=== PATIENT | female | born 1940 ===

== ENCOUNTER 2017-10-08 12:35 | Inpatient (IN) | payer MEDICARE ==
[2017-10-08 12:49] VITALS: BMI 32.1
--- NOTE | 2017-10-08 13:59 | ED PDOC ---
Arrival/HPI - General Chief Complaint: GI Problem Time Seen by Provider: 10/08/17 13:14 Historian: Patient, Family - History of Present Illness Narrative History of Present Illness (Text): you have baseline dementia and at your baseline level today, were treated in the ED today for recently completing levaquin for respiratory illness with today being last dose and having diarrhea yesterday but none today without bile/ blood and otherwise without any new foods/travel/sick contacts/nausea/vomiting/ headache/dizziness/difficulty breathing/chest pain/abdomen pain/numbness/ tingling/loss of limb function/pain with urination. 10/08/17 13:56 10/08/17 14:01 Past Medical History - Provider Review Nursing Documentation Reviewed: Yes - Travel History Have you recently traveled outside [place] w/in the past 3 mons?: No - Infectious Disease Hx of Infectious Diseases: None - Tetanus Immunization Tetanus Immunization: Unknown - Cardiac Hx Congestive Heart Failure: Yes Hx Hypertension: Yes - Pulmonary Hx Pneumonia: Yes - Neurological Hx Dementia: Yes - Endocrine/Metabolic Hx Diabetes Mellitus Type 2: Yes - Musculoskeletal/Rheumatological Hx Arthritis: Yes - Genitourinary/Gynecological Hx Urinary Tract Infection: Yes - Psychiatric Hx Depression: No Hx Emotional Abuse: No Hx Physical Abuse: No Hx Substance Use: No - Past Surgical History Past Surgical History: No Previous - Anesthesia Hx Anesthesia: No - Suicidal Assessment Feels Threatened In Home Enviroment: No Family/Social History - Physician Review Nursing Documentation Reviewed: Yes Smoking Status: Never Smoked Hx Alcohol Use: No Hx Substance Use: No Hx Substance Use Treatment: No Allergies/Home Meds Allergies/Adverse Reactions: Allergies tomato Allergy (Verified 10/08/17 12:49) ITCHING Home Medications: Home Meds Medication Instructions Recorded Confirmed Alprazolam [Xanax Xr] 1 tab PO DAILY 10/08/17 10/08/17 Alprazolam [Xanax] 1 tab PO BID 10/08/17 10/08/17 Atorvastatin [Lipitor] 1 tab PO HS 10/08/17 10/08/17 Cetirizine HCl [Zyrtec] 1 cap PO PRN PRN 10/08/17 10/08/17 Diphenhydramine HCl [Sleep Aid] 1 cap PO HS PRN 10/08/17 10/08/17 Donepezil [Aricept] 1 tab PO DAILY 10/08/17 10/08/17 GlipiZIDE [Glucotrol] 1 tab PO BID 10/08/17 10/08/17 Metoprolol Tartrate [Lopressor] 1 tab PO DAILY 10/08/17 10/08/17 NIFEdipine ER [Procardia XL] 1 tab PO DAILY 10/08/17 10/08/17 Sertraline HCl [Zoloft] 200 mg PO DAILY 10/08/17 10/08/17 Sitagliptin Phos/Metformin HCl 1 tab PO BID 10/08/17 10/08/17 [Janumet 50-500 mg Tablet] Valsartan/Hydrochlorothiazide 1 tab PO DAILY 10/08/17 10/08/17 [Diovan Hct 320-12.5 mg Tab] Review of Systems - Review of Systems Constitutional: Normal Eyes: Normal ENT: Normal Respiratory: Normal Cardiovascular: Normal Gastrointestinal: Diarrhea Genitourinary Female: Normal Musculoskeletal: Normal Skin: Normal Neurological: Normal Endocrine: Normal Hemo/Lymphatic: Normal Psychiatric: Normal Physical Exam Vital Signs Reviewed: Yes Vital Signs Temp Pulse Resp BP Pulse Ox 10/08/17 14:21 79 18 106/69 97 10/08/17 12:54 97.6 F 83 18 104/61 97 Temperature: Afebrile Blood Pressure: Normal Pulse: Regular Respiratory Rate: Normal Appearance: Positive for: Well-Appearing, Non-Toxic, Comfortable Pain Distress: None Mental Status: Positive for: Alert and Oriented X 3 - Systems Exam Head: Present: Atraumatic, Normocephalic Pupils: Present: PERRL Extroacular Muscles: Present: EOMI Conjunctiva: Present: Normal Ears: Present: Normal Mouth: Present: Moist Mucous Membranes Pharnyx: Present: Normal Nose (External): Present: Atraumatic Nose (Internal): Present: Normal Inspection Neck: Present: Normal Range of Motion Respiratory/Chest: Present: Clear to Auscultation, Good Air Exchange Cardiovascular: Present: Regular Rate and Rhythm Abdomen: No: Tenderness, Distention, Normal Bowel Sounds, Peritoneal Signs, Rebound, Guarding, McBurney's Point Tender, Rovsing's Sign Present, Hernias, Feeding Tubes, Ostomy Tubes, Mass/Organomegaly, Scars, Other Back: Present: Normal Inspection Upper Extremity: Present: Normal Inspection Lower Extremity: Present: Normal Inspection Neurological: Present: GCS=15, CN II-XII Intact, Speech Normal, Motor Func Grossly Intact Skin: Present: Warm, Normal Color Psychiatric: Present: Alert, Oriented x 3, Normal Insight, Normal Concentration Medical Decision Making ED Course and Treatment: you have baseline dementia and at your baseline level today, were treated in the ED today for recently completing levaquin for respiratory illness with today being last dose and having diarrhea yesterday but none today without bile/ blood and otherwise without any new foods/travel/sick contacts/nausea/vomiting/ headache/dizziness/difficulty breathing/chest pain/abdomen pain/numbness/ tingling/loss of limb function/pain with urination. You were otherwise breathing easily, smiling and laughing with your daughter, good strength/ sensation, answering questions easily and at baseline mental status, walking, clear lungs, no abdomen tenderness, no fever temp 97.6, stable heart rate 83, stable breathing rate 18, excellent oxygen level 97% room air, stable blood pressure 104/61, you have blood tests infection count 22, troponin negative, creatinine 4.2 which is increased 1.4 (03/2017), lactic acid 0.9, urine test pending, radiology chest xray no active disease, lumbar ct chronic compression fracture 1-3 with spinal stensosis, ECG normal sinus rhythm, observation and intravenous fluids done in the ED with improvement, discussed with Dr. Perales who stated admit with abx, no ct a/p and Dr. Grimaldo consultation. 10/08/17 14:00 10/08/2017 15:[address] FINDINGS: VERTEBRAE: There is a severe compression fracture of L1. This appears to be chronic. There is also a partial compression fracture of the left side of L2. There is a minimal compression deformity of the superior endplate of L3. DISCS/SPINAL CANAL/NEURAL FORAMINA: L1-2: Unremarkable. L2-3: Unremarkable. L3-4: Mild disc bulge. L4-5: There is severe stenosis at this level secondary disc bulging and facet degeneration. There is obliteration of the thecal sac. L5-S1: Severe facet arthropathy. PARASPINAL SOFT TISSUES: unremarkable. OTHER FINDINGS: None. IMPRESSION: Chronic appearing compression fractures at L1-2 and 3. Most severe at L1. Severe spinal stenosis at L4-5. Dictator: Jean Greene MD 10/08/2017 15:25 Chest X-ray IMPRESSION: No active pulmonary disease. Dictator: Talita Matthews MD 10/08/17 16:10 10/08/17 16:15 10/08/17 16:33 d 10/08/17 17:39 d/w Dr. Michel who stated yes no further diarrhea at this time but due to recent abx use, having wbc 22, rec vancomycin oral, flagyl iv and c-diff studies to be sent. pt wo diarrhea in the ED/today. - Lab Interpretations Lab Results: 10/08/17 14:30 10/08/17 14:30 Lab Results 10/08/17 15:31: pO2 175 H, VBG pH 7.22 L, VBG pCO2 43.0, VBG HCO3 17.6 L, VBG Total CO2 18.9 L, VBG O2 Sat (Calc) 100.3 H, VBG Base Excess -9.8 L, VBG Potassium 4.3, Glucose 58 L, Lactate 0.9, FiO2 21.0, Sodium 138.0, Chloride 111.0 H, Venous Blood Potassium 4.3 10/08/17 14:30: Sodium 139, Potassium 4.5, Chloride 108 H, Carbon Dioxide 18 L, Anion Gap 17, BUN 60 H, Creatinine 4.2 H, Est GFR ( Amer) 12, Est GFR ( Non-Af Amer) 10, Random Glucose 72, Calcium 9.4, Total Bilirubin 0.2, AST 58 H, ALT 38, Alkaline Phosphatase 65, Lactate Dehydrogenase 323 L, Total Creatine Kinase 352 H, CK-MB (CK-2) 6.9 H, CK-MB (CK-2) % 2.0 L, Troponin I < 0.01, Total Protein 7.4, Albumin 3.8, Globulin 3.6, Albumin/Globulin Ratio 1.0 L 10/08/17 14:30: PT 14.4 H, INR 1.26 H, APTT 28.8 10/08/17 14:30: WBC 22.8 H D, RBC 4.05, Hgb 11.1 L, Hct 36.2, MCV 89.4, MCH 27.4 , MCHC 30.7 L, RDW 14.5, Plt Count 270, MPV 10.2, Gran % 84.6 H, Lymph % (Auto) 9.0 L, [place] % (Auto) 5.4, Eos % (Auto) 1.0 L, Baso % (Auto) 0.0, Gran # 19.30 H , Lymph # 2.1, [place] # 1.2 H, Eos # 0.2, Baso # 0.01 I have reviewed the lab results: Yes (wbc 22, cr 4.2) - RAD Interpretation Radiology Orders: 10/08/17 14:20 CHEST TWO VIEWS (PA/LAT) [RAD] Stat 10/08/17 14:21 LUMBAR SPINE W/O CONTRAST [CT] Stat Hand Washer: Radiologist - EKG Interpretation Interpreted by ED Physician: Yes (NSR, flattened avr, v1, ii, flipped iii) - Medication Orders Current Medication Orders: Lactated Ringer's (Lactated Ringer's) 1,000 mls @ 100 mls/hr IV .Q10H OBEY Metronidazole (Flagyl) 500 mg in 100 mls @ 100 mls/hr IVPB STAT STA PRN Reason: Protocol Stop: 10/08/17 18:34 Vancomycin HCl (Vancocin 25 Mg/Ml (Oral Use)) 500 mg PO STAT STA PRN Reason: Protocol Stop: 10/08/17 17:37 Discontinued Medications Piperacillin Sod/Tazobactam Sod (Zosyn 4.5 Gm In Ns 100ml) 4.5 gm in 100 mls @ 200 mls/hr IVPB STAT STA PRN Reason: Protocol Stop: 10/08/17 17:01 Last Admin: 10/08/17 17:21 Dose: 200 mls/hr eMAR Start Stop Document 10/08/17 17:21 EQ (Rec: 10/08/17 17:21 EQ [id number]) Intravenous Solution Start Date 10/08/17 Start Time 17:21 Disposition/Present on Arrival - Present on Arrival History of DVT/PE: No History of Uncontrolled Diabetes: No Urinary Catheter: No History of Decub. Ulcer: No History Surgical Site Infection Following: None - Disposition Referrals: Douglas Perales DO [Primary Care Provider] - Follow up with primary Forms: [employer] ([place]occan)
[2017-10-08 14:57] LABS: BASO # 0.01 K/mm3 (0.0-2.0); EOS # 0.2 (0.0-0.7); GRAN # 19.3 (1.4-6.5); GRAN % 84.6 % (50.0-68.0); HEMOGLOBIN 11.1 g/dL (12.0-16.0); LYMPH # 2.1 (1.2-3.4); MEAN CELL VOLUME 89.4 fl (80.0-105.0); MEAN CORPUSCULAR HEMOGLOBIN 27.4 pg (25.0-35.0); MEAN CORPUSCULAR HGB CONC 30.7 g/dl (31.0-37.0); MEAN PLATELET VOLUME 10.2 fl (7.0-11.0); MONO # 1.2 (0.1-0.6); MONO % 5.4 % (1.0-6.0); RBC 4.05 10^6/uL (3.5-6.1); RED CELL DISTRIBUTION WIDTH 14.5 % (11.5-14.5); WHITE BLOOD COUNT 22.8 10^3/ul (4.5-11.0)
[2017-10-08 15:10] LABS: INR 1.26 (0.93-1.08); PARTIAL THROMBOPLASTIN TIME 28.8 Seconds (25.1-36.5); PROTHROMBIN TIME 14.4 SECONDS (9.4-12.5)
[2017-10-08 15:19] LABS: TROPONIN I < 0.01 ng/mL
--- NOTE | 2017-10-08 15:19 | CT ---
PROCEDURE: CT Lumbar Spine without contrast HISTORY: 77yoF, had fall with concern for back injury COMPARISON: None. TECHNIQUE: Axial computed tomography images were obtained of the lumbar spine without the use of intravenous contrast. Coronal and sagittal reformatted images were created and reviewed. Radiation dose: Total exam DLP = 814 mGy-cm. This CT exam was performed using one or more of the following dose reduction techniques: Automated exposure control, adjustment of the mA and/or kV according to patient size, and/or use of iterative reconstruction technique. FINDINGS: VERTEBRAE: There is a severe compression fracture of L1. This appears to be chronic. There is also a partial compression fracture of the left side of L2. There is a minimal compression deformity of the superior endplate of L3. DISCS/SPINAL CANAL/NEURAL FORAMINA: L1-2: Unremarkable. L2-3: Unremarkable. L3-4: Mild disc bulge L4-5: There is severe stenosis at this level secondary disc bulging and facet degeneration. There is obliteration of the thecal sac. L5-S1: Severe facet arthropathy PARASPINAL SOFT TISSUES: Unremarkable. OTHER FINDINGS: None. IMPRESSION: Chronic appearing compression fractures at L1-2 and 3. Most severe at L1. Severe spinal stenosis at L4-5. See comment
--- NOTE | 2017-10-08 15:27 | RAD ---
HISTORY: COMPARISON: 12/22/2016. TECHNIQUE: Chest PA and lateral FINDINGS: LINES AND TUBES: None. LUNG AND PLEURA: The lungs are well inflated and clear. HEART AND MEDIASTINUM: The heart is not enlarged. The hilar and mediastinal contours are within normal limits. SKELETAL STRUCTURES: The bony structures are within normal limits for the patient's age. VISUALIZED UPPER ABDOMEN: Normal. OTHER FINDINGS: None. IMPRESSION: No active pulmonary disease.
[2017-10-08 15:39] LABS: VENOUS BLOOD GAS BASE EXCESS -9.8 mmol/L (0.0-2.0); VENOUS BLOOD GAS PO2 175 mm/Hg (30-55); VENOUS BLOOD PH 7.22 (7.32-7.43)
[2017-10-08 15:44] LABS: ALBUMIN 3.8 g/dL (3.0-4.8); ALT/SGPT 38 U/L (7-56); AST/SGOT 58 U/L (14-36); BLOOD UREA NITROGEN 60 mg/dL (7-21); CALCIUM 9.4 mg/dL (8.4-10.5); GFR AFRICAN-AMERICAN 12; GFR NON-AFRICAN AMERICAN 10
[2017-10-08] MEDS ORDERED: Lactated Ringer's 1,000 ML IV SCH (16:15)
[2017-10-08] MEDS ORDERED: Piperacill/Tazo 4.5gm in NS 4.5 GM/100 ML BAG IVPB STA (16:32)
[2017-10-08 17:17] LABS: CK-MB 6.9 ng/mL (0.0-3.6)
[2017-10-08] MEDS ORDERED: metroNIDAZOLE IV 500 mg/100 ml 500 MG/100 ML BAG IVPB STA (17:35)
[2017-10-08] MEDS ORDERED: Vancomycin 25 MG/ML PO STA (17:36)
[2017-10-08] MEDS: Piperacillin/Tazobact 2.25gm 2.25 GM/100 ML BAG IVPB SCH (21:03)
[2017-10-08] MEDS: Insulin Reg-MEDIUM-Coverage SC SCH (22:06)
[2017-10-08] MEDS: Vancomycin 25 MG/ML PO SCH (22:06)
[2017-10-08] MEDS: Sodium Chloride 0.45% 1,000 ML IV SCH (22:10)
[2017-10-08] MEDS ORDERED: Influenza Vaccine 60 mcg/0.5 mL SYR (4YR UP) IM ONE (22:58)
[2017-10-08] MEDS ORDERED: Pneumococcal 23-Valent Vaccine IM ONE (22:58)
--- NOTE | 2017-10-09 03:52 | HP ---
HISTORY OF PRESENT ILLNESS: I have been doing house calls on [place] for a while now. She is doing well. Finally, I was able to get a blood test on her and I found to have a 19,000 white count, so I send her to the Emergency Room. She has been on antibiotics on the outpatient and she had one bout of diarrhea. Clinically, looked at her, she did look quite well. She did have a respiratory illness a couple of weeks ago, now she looks pretty good that way, but she is having one dose of diarrhea, found to have C. Difficile. She is now in the ER. She is happy with family, laughing. PAST MEDICAL HISTORY: Hypertension is her history, dementia is her history, diabetes mellitus, arthritis, urinary tract infections. SOCIAL HISTORY: Never smoked. No alcohol. No drugs. ALLERGIES: SHE HAS ALLERGIES TO TOMATOES. MEDICATIONS: She takes Xanax for anxiety, Lipitor for high cholesterol, Zyrtec for allergies, Benadryl for sleep, Aricept for dementia, Glucotrol for diabetes, Lopressor for high blood pressure, Procardia for high blood pressure, Zoloft for depression, Janumet for diabetes and valsartan and hydrochlorothiazide for blood pressure. REVIEW OF SYSTEMS: No acute vision changes or hearing changes. No sore throat. No neck pain. No chest pain. No cough. No palpitations. Her mucus today is very good. Normally her lungs are bad, today is good. No back pain, although she does have a back history in the past. No skin issues. She had one dose of diarrhea yesterday other than that she had normal bowel movements. PHYSICAL EXAMINATION GENERAL: She is well appearing, smiling, comfortable, alert and oriented x3. VITAL SIGNS: She has a 97.6 temperature, 83 pulse, 18 respiratory rate, 104/61 blood pressure, 97% O2 sat on room air. HEENT: Head is atraumatic, normocephalic. Pupils reactive to light and accommodation. Extraocular muscles are intact. Throat is moist. NECK: Supple. HEART: Regular rate. LUNGS: Clear to auscultation bilaterally. No rales or rhonchi or wheezes. ABDOMEN: Soft, nontender. Positive bowel sounds. No guarding, no rebound or CVA tenderness. EXTREMITIES: No edema. NEUROLOGIC: GCS is 15. Cranial nerves II through XII grossly intact. Normal speech. Alert and oriented x3. This is her baseline mentally. They did do a lumbar spinal CT, which showed compression fracture of L1, its is chronic, partial compression fractures on the left side L2, that seemed to be chronic. There is severe stenosis. No acute pulmonary disease in the chest x-ray. She has a 22.8 white count, 11.1 hemoglobin, 36.2 hematocrit with 270 platelets, 139 sodium, potassium 4.5, BUN 60, creatinine 4.2 which I believe is high for her, little bit of renal failure, calcium is 9.4, AST is 58, ALT is 38, alk phos 65, lactate dehydrogenase is 323. Troponin I is less than 0.01, total protein 7.4, albumin is 3.8. INR is 1.26. Lactate is 0.9 with a 22.8 white count. PLAN: I consulted Dr. Lorenzo, Infectious Disease and Renal. I put her back on the medications. I am going to hold the metformin because of the renal issue. I just put her on the Janumet. She is here for an elevated white count of 22,000, kidney failure. She will be on IV antibiotics with an Infectious Disease and Renal consult. Douglas Perales DO
[2017-10-09] MEDS: Piperacillin/Tazobact 2.25gm 2.25 GM/100 ML BAG IVPB SCH (04:44)
[2017-10-09 08:11] LABS: ALBUMIN 3.5 g/dL (3.0-4.8); CALCIUM 8.8 mg/dL (8.4-10.5)
[2017-10-09 09:23] LABS: HEMOGLOBIN 10.9 g/dL (12.0-16.0); MEAN CELL VOLUME 89.7 fl (80.0-105.0); MEAN CORPUSCULAR HEMOGLOBIN 27.4 pg (25.0-35.0); MEAN CORPUSCULAR HGB CONC 30.5 g/dl (31.0-37.0); MEAN PLATELET VOLUME 10.6 fl (7.0-11.0); RBC 3.98 10^6/uL (3.5-6.1); RED CELL DISTRIBUTION WIDTH 14.6 % (11.5-14.5); WHITE BLOOD COUNT 16.3 10^3/ul (4.5-11.0)
[2017-10-09] MEDS ORDERED: HYDROCHLOROTHIAZIDE PO SCH (10:00)
[2017-10-09] MEDS ORDERED: VALSARTAN PO SCH (10:00)
[2017-10-09] MEDS ORDERED: Non Formulary Medication (Sitagliptin Phos/Metformin Hcl [Janumet 50-500 Mg Tablet] 1 TAB) PO SCH (10:00)
[2017-10-09] MEDS ORDERED: [UNRECOGNIZED DRUG - OTHER] PO SCH (10:00)
--- NOTE | 2017-10-09 10:43 | CARD ---
APPROVED REPORT EKG Measurement Heart [id number] <Conclusion> Normal sinus rhythm Moderate voltage criteria for LVH, may be normal variant Inferior infarct, age undetermined No change
--- NOTE | 2017-10-09 10:57 | CP.PCM.CON ---
History of Present Illness - History of Present Illness History of Present Illness: RENAL CONSULT Consult for RED HPI: 77 yo F w/ pmh of dementia, htn, nerve pain that presented w/ leukocytosis. She has been getting evaluated by her PCP over the last couple weeks. She has had a leukocytosis - she was recently treated w/ a course oABx - levaquin for her infection but w/out improvement. She also endorses some loose stools. She had dec po intake according to family as well. She was on a arb/ hctz combination at home. She denies any NSAID use. She endorses hx of microhematuria. A full detailed ROS is negative except as in my hpi pmh: as below famhx: no esrd sochx: no active smoking etoh or ivdu all: tomato meds: as below PE: vs as below Gen: nad sclera anicteric op sclera neck supple +s1+s2 cta abd soft ext no edema neuro: a+ox2 follows commands psych: flat skin no rash labs reviewed CXR reviewed imp: ARF / Diarrhea/ Anemia / Leukocytosis / Acidosis plan: RED - Etiology not clear - mildly improved today. ? Prerenal. Improved w/ slight fluids. Family endorses dec intake. F/u CT abdomen to r/o obstructive etiology for renal failure. Will check UA and urine lytes, urine na urine cr and urine protein. Will hold hctz and diovan in the setting of RED. Acidosis stable - will monitor likely due to RED no lactic acid. F/u ID consult. monitor H & H Past Patient History - Infectious Disease Hx of Infectious Diseases: None - Tetanus Immunizations Tetanus Immunization: Unknown - Past Social History Smoking Status: Never Smoked - CARDIAC Hx Cardiac Disorders: Yes Hx Congestive Heart Failure: Yes Hx Hypercholesterolemia: Yes Hx Hypertension: Yes - PULMONARY Hx Respiratory Disorders: Yes Hx Pneumonia: Yes - NEUROLOGICAL Hx Neurological Disorder: Yes Hx Dementia: Yes - HEENT Hx HEENT Problems: No - RENAL Hx Chronic Kidney Disease: No - ENDOCRINE/METABOLIC Hx Endocrine Disorders: Yes Hx Diabetes Mellitus Type 2: Yes - HEMATOLOGICAL/ONCOLOGICAL Hx Blood Disorders: No - INTEGUMENTARY Hx Dermatological Problems: No - MUSCULOSKELETAL/RHEUMATOLOGICAL Hx Musculoskeletal Disorders: Yes Hx Arthritis: Yes Hx Back Pain: Yes Hx Falls: Yes (multiple falls) Hx Unsteady Gait: Yes - GASTROINTESTINAL Hx Gastrointestinal Disorders: No - GENITOURINARY/GYNECOLOGICAL Hx Genitourinary Disorders: Yes Hx Urinary Tract Infection: Yes - PSYCHIATRIC Hx Psychophysiologic Disorder: Yes (insomnia) Hx Anxiety: Yes Hx Depression: No Hx Emotional Abuse: No Hx Physical Abuse: No Hx Substance Use: No - SURGICAL HISTORY Hx Surgeries: No - ANESTHESIA Hx Anesthesia: No Meds Allergies/Adverse Reactions: Allergies Allergy/AdvReac Type Severity Reaction Status Date / Time tomato Allergy ITCHING Verified 10/08/17 20:59 - Medications Medications: Current Medications Alprazolam (Xanax) 1 mg PO BID OBEY PRN Reason: Protocol Atorvastatin Calcium (Lipitor) 10 mg PO HS OBEY Last Admin: 10/08/17 22:07 Dose: 10 mg Glipizide (Glucotrol) 2.5 mg PO BID OBEY Hydrochlorothiazide (Microzide) 12.5 mg PO DAILY [facility] Sodium Chloride (Sodium Chloride 0.45%) 1,000 mls @ 80 mls/hr IV .[id number] [facility] Last Admin: 10/08/17 22:10 Dose: 80 mls/hr Metronidazole (Flagyl) 500 mg in 100 mls @ 100 mls/hr IVPB Q8 OBEY PRN Reason: Protocol Stop: 10/18/17 14:01 Insulin Human Regular (Humulin R Med) 0 units SC ACHS OBEY PRN Reason: Protocol Last Admin: 10/08/17 22:06 Dose: Not Given Metoprolol Succinate (Toprol Xl) 100 mg PO BRK OBEY Nifedipine (Procardia Xl) 60 mg PO DAILY [facility] Sertraline HCl (Zoloft) 200 mg PO DAILY OBEY Sitagliptin Phosphate (Januvia) 100 mg PO DAILY OBEY Valsartan (Diovan) 320 mg PO DAILY OBEY Vancomycin HCl (Vancocin 25 Mg/Ml (Oral Use)) 125 mg PO QID OBEY PRN Reason: Protocol Last Admin: 10/08/17 22:06 Dose: 125 mg Results - Vital Signs Recent Vital Signs: Last Vital Signs Temp 97.6 F 10/09/17 08:00 Pulse 88 10/09/17 08:00 Resp 20 10/09/17 08:00 BP 124/55 L 10/09/17 08:00 Pulse Ox 94 L 10/09/17 08:00 - Labs Result Diagrams: 10/09/17 07:00 10/09/17 07:00 Labs: Laboratory Results - last 24 hr 10/08/17 10/09/17 10/09/17 21:00 07:00 07:00 WBC 16.3 H D RBC 3.98 Hgb 10.9 L Hct 35.7 L MCV 89.7 MCH 27.4 MCHC 30.5 L RDW 14.6 H Plt Count 234 MPV 10.6 Sodium 142 Potassium 3.8 Chloride 111 H Carbon Dioxide 18 L Anion Gap 18 BUN 58 H Creatinine 4.0 H Est GFR ( Amer) 13 Est GFR (Non-Af Amer) 11 POC Glucose (mg/dL) 72 Random Glucose 37 L* D Calcium 8.8 Total Bilirubin 0.2 AST 58 H ALT 49 Alkaline Phosphatase 56 Total Protein 6.9 Albumin 3.5 Globulin 3.4 Albumin/Globulin Ratio 1.0 L 10/09/17 10/09/17 07:32 08:11 WBC RBC Hgb Hct MCV MCH MCHC RDW Plt Count MPV Sodium Potassium Chloride Carbon Dioxide Anion Gap BUN Creatinine Est GFR ( Amer) Est GFR (Non-Af Amer) POC Glucose (mg/dL) 51 L 91 Random Glucose Calcium Total Bilirubin AST ALT Alkaline Phosphatase Total Protein Albumin Globulin Albumin/Globulin Ratio
[2017-10-09] MEDS: Vancomycin 25 MG/ML PO SCH ×4 (11:00→22:34)
[2017-10-09] MEDS: Metoprolol Succinate 100 mg XL Tab PO SCH (11:10)
[2017-10-09] MEDS: NIFEdipine 60 mg ER Tab PO SCH (11:10)
[2017-10-09] MEDS: Insulin Reg-MEDIUM-Coverage SC SCH ×4 (11:10→22:26)
[2017-10-09 12:53] LABS: PH,URINE 5.5 (4.7-8.0); URINE BILIRUBIN NEGATIVE (NEGATIVE); URINE BLOOD SMALL (NEGATIVE); URINE GLUCOSE (UA) NEGATIVE (NEGATIVE); URINE LEUKOCYTE ESTERASE MODERATE Leu/uL (NEGATIVE); URINE NITRATE NEGATIVE (NEGATIVE); URINE PROTEIN 30 mg/dL (<30 mg/dL); URINE UROBILINOGEN 0.2 E.U./dL (<1 E.U./dL)
[2017-10-09 12:59] LABS: CREATININE,RANDOM URINE 124 mg/dL; TOTAL PROTEIN,RANDOM URINE 41 mg/L
--- NOTE | 2017-10-09 12:59 | PN ---
DATE: SUBJECTIVE: She is resting comfortably in bed with family present. Long discussion with everybody. She is being seen by Infectious Disease and Renal. She is here for acute kidney injury, acute kidney failure and sepsis leukocytosis thinking that it might be C. diff, but she only had one bout of diarrhea. PHYSICAL EXAMINATION: VITAL SIGNS: She has a 97.6 temperature, 88 pulse, 124/55 blood pressure, 20 respiratory rate, 94% O2 sat on room air. HEENT: Head is atraumatic, normocephalic. HEART: Regular rate. LUNGS: Clear to auscultation. ABDOMEN: Soft, obese, nontender. EXTREMITIES: No edema. MEDICATIONS: She is currently on Diovan, Flagyl IV, Glucotrol, insulin, Januvia, Lipitor, Microzide, Procardia, IV fluids, Toprol, vancomycin p.o., Xanax and Zoloft. LABORATORY DATA: She has a 142 sodium, potassium 3.8, BUN is 58, creatinine 4, still high. GFR is 11. Last blood sugar was 313, was low as 51. AST is 58, ALT is 49, alk phos 56, total protein 6.9. White count is down to 16.3 from 22.8, hemoglobin 10.9, hematocrit 35.7, and platelets are 234. We will check her labs tomorrow. ASSESSMENT AND PLAN: We will get her out of bed to chair, physical therapy. She had a leukocytosis, acute renal failure, kidney injury, possible clostridium difficile, and now she is little bit weaker. We will watch her very closely, get her out of bed to chair, physical therapy, IV antibiotics, IV fluids. Check her labs tomorrow. Douglas Perales DO MTDSandy
[2017-10-09 13:37] LABS: URINE APPEARANCE SL CLOUDY (CLEAR); URINE COLOR YELLOW (YELLOW)
[2017-10-09 13:44] LABS: URINE BACTERIA FEW (NEG)
[2017-10-09] MEDS: metroNIDAZOLE IV 500 mg/100 ml 500 MG/100 ML BAG IVPB SCH ×2 (15:23→22:34)
--- NOTE | 2017-10-09 22:15 | CON ---
DATE: 10/09/2017 LOCATION: The patient is in room 574, bed 1. The patient was seen early this morning on 10/09/2017. CHIEF COMPLAINT: Abdominal pain and diarrhea times several days. HISTORY OF PRESENT ILLNESS: This is a 77-year-old female with past medical history of dementia. The patient has a history of high cholesterol, diabetes, hypertension, dementia, and depression. The patient admitted with abdomina pain and diarrhea. No fevers. No chills this morning. She states her diarrhea has resolved. No abdominal pain now. No chest pain. No cough. No dysuria. No bright red blood per rectum. PAST MEDICAL HISTORY: Significant for high cholesterol, diabetes, hypertension, dementia, and depression. PAST SURGICAL HISTORY: Noncontributory. ALLERGIES: THE PATIENT HAS ALLERGY TO TOMATO. MEDICATIONS AT HOME: Reveals the patient to be on Xanax, Lipitor, Aricept, Glucotrol, Lopressor, and Procardia. PHYSICAL EXAMINATION: GENERAL: The patient is in bed, no acute distress, answering questions, and she appears to be comfortable. VITAL SIGNS: Temperature of 98, blood pressure is 120/50, respiratory rate of 20, and heart rate of 74. HEENT: Unremarkable. NECK: Supple. LUNGS: Decreased breath sounds. HEART: Normal S1 and S2. ABDOMEN: Soft and nontender. No rebound. No guarding. No masses. LABORATORY DATA: Reveals a white count of 22,800, hemoglobin of 11, and platelets of 270. Coagulation is noted. Blood gases are reviewed. Chemistries reveals the creatinine is 4.2 prior to this admission and in 03/2017, the patient's creatinine was 1.4. LFTs are noted. AST is 58. LDH is elevated. CPK is elevated. No urinalysis is available. The patient had a negative chest x-ray and CAT scan of the lumbar spine shows compression fracture of L2 and L3. ASSESSMENT AND PLAN: This is a 77-year-old female with dementia, high cholesterol, diabetes, hypertension, depression, status post treatment for upper respiratory tract infection, but now presenting with diarrhea, leukocytosis, white count of 22,000, and creatinine of 4.2. 1. Leukocytosis, must rule out Clostridium difficile. 2. Acute kidney injury. Creatinine is changed from 1.4 to 4.2 and keep in mind that the patient is on Lopressor, beta-debbi, which may be the reason why she is not tachycardic, must rule out pseudomembranous colitis. We will order a CAT scan of the abdomen and pelvis, sent the blood cultures, urine cultures, urinalysis, and stool cultures. We will start the patient on IV Flagyl and p.o. vancomycin since her exam is completely benign and she was doing well. We will make further decision based on urinalysis, CAT scan of the abdomen and pelvis, and we will follow closely with you. Elliott Lorenzo MD
[2017-10-10] MEDS: metroNIDAZOLE IV 500 mg/100 ml 500 MG/100 ML BAG IVPB SCH ×3 (06:08→23:20)
[2017-10-10 07:25] LABS: HEMOGLOBIN 10.6 g/dL (12.0-16.0); MEAN CELL VOLUME 88.2 fl (80.0-105.0); MEAN CORPUSCULAR HEMOGLOBIN 27.2 pg (25.0-35.0); MEAN CORPUSCULAR HGB CONC 30.9 g/dl (31.0-37.0); MEAN PLATELET VOLUME 10.3 fl (7.0-11.0); RBC 3.89 10^6/uL (3.5-6.1); RED CELL DISTRIBUTION WIDTH 14.7 % (11.5-14.5); WHITE BLOOD COUNT 13.5 10^3/ul (4.5-11.0)
[2017-10-10 08:00] LABS: ALBUMIN 3.4 g/dL (3.0-4.8); CALCIUM 8.9 mg/dL (8.4-10.5)
[2017-10-10] MEDS: Insulin Reg-MEDIUM-Coverage SC SCH ×3 (09:33→23:08)
[2017-10-10] MEDS: NIFEdipine 60 mg ER Tab PO SCH (09:34)
[2017-10-10] MEDS: Metoprolol Succinate 100 mg XL Tab PO SCH (09:35)
[2017-10-10] MEDS: Sodium Chloride 0.45% 1,000 ML IV SCH ×2 (09:38→23:21)
[2017-10-10] MEDS: Vancomycin 25 MG/ML PO SCH ×4 (11:20→23:21)
[2017-10-10] MEDS ORDERED: Iohexol 240 (50 ml) ONE (11:41)
--- NOTE | 2017-10-10 15:02 | CT ---
PROCEDURE: CT Abdomen and Pelvis without IV contrast. HISTORY: wbc 22k COMPARISON: Abdominal ultrasound performed 03/28/13 TECHNIQUE: Contiguous axial images of the abdomen and pelvis. Oral contrast was administered. No IV contrast given. Coronal and Sagittal reformats generated and reviewed. Radiation dose: Total exam DLP = 950.39 mGy-cm. This CT exam was performed using one or more of the following dose reduction techniques: Automated exposure control, adjustment of the mA and/or kV according to patient size, and/or use of iterative reconstruction technique. FINDINGS: There is limited evaluation of the solid organs without the administration of IV contrast. LOWER THORAX: No visible consolidation, pleural effusion, or pneumothorax. LIVER: Unremarkable unenhanced appearance. GALLBLADDER AND BILE DUCTS: Unremarkable unenhanced appearance. PANCREAS: Unremarkable unenhanced appearance. SPLEEN: Unremarkable unenhanced appearance. ADRENALS: Unremarkable unenhanced appearance. KIDNEYS AND URETERS: No hydronephrosis or obstructing renal calculus. 3.5 cm low-density left renal lesion measures approximate 14 HU and contains punctate probable peripheral calcifications, possibly complex cyst. Indeterminate 1.9 cm right lower pole renal lesion measures approximately 41HU. BLADDER: The urinary bladder appears unremarkable. REPRODUCTIVE: Uterus is present. APPENDIX: The appendix appears within normal limits of caliber. No secondary signs of acute appendicitis. BOWEL: The stomach is nondistended. The bowel loops appear within normal limits of caliber without evidence of intestinal obstruction. Diverticulosis without CT evidence of acute diverticulitis. PERITONEUM: No significant free fluid. No definite free air. LYMPH NODES: No bulky lymphadenopathy identified. VASCULATURE: No aortic aneurysm. BONES: L1 compression fracture deformity, age indeterminate. Multilevel degenerative changes. OTHER FINDINGS: None. IMPRESSION: Probable 3.5 cm left renal complex cyst and indeterminate 1.9 cm right lower pole renal hyperdense lesion. Additional too small to characterize right upper pole renal hypodensity. Recommend renal ultrasound and or dedicated cross-sectional imaging for further evaluation. Diverticulosis without CT evidence of acute diverticulitis. L1 compression fracture deformity, age indeterminate. Additional findings as above.
--- NOTE | 2017-10-10 15:07 | CP.PCM.PN ---
Subjective - Date & Time of Evaluation Date of Evaluation: 10/10/17 Time of Evaluation: 15:05 - Subjective Subjective: RENAL FOLLOW UP S: seen and examined pt feels improved PE: vs as below gen: nad sclera anicteric op sclera neck supple +s1+s2 cta abd soft ext no edema neuro: a+ox3 psych: flat skin no rash labs reviewed CXR reviewed imp: ARF / Diarrhea/ Anemia / Leukocytosis / Acidosis plan: RED - resolving w/ fluids and w/ hctz and diovan on hold. going for CT today. Acidosis stable - will monitor likely due to RED no lactic acid. F/u ID consult. monitor H & H Objective - Vital Signs/Intake and Output Vital Signs (last 24 hours): Temp Pulse Resp BP Pulse Ox 98.4 F 90 22 112/48 L 95 10/10/17 07:30 10/10/17 07:30 10/10/17 07:30 10/10/17 07:30 10/10/17 07:30 Intake and Output: 10/10/17 10/10/17 06:59 18:59 Intake Total 360 600 Balance 360 600 - Medications Medications: Current Medications Alprazolam (Xanax) 1 mg PO BID [facility] PRN Reason: Protocol Last Admin: 10/10/17 09:33 Dose: 1 mg Atorvastatin Calcium (Lipitor) 10 mg PO HS [facility] Last Admin: 10/09/17 22:34 Dose: 10 mg Glipizide (Glucotrol) 2.5 mg PO BID [facility] Last Admin: 10/10/17 09:34 Dose: 2.5 mg Hydrochlorothiazide (Microzide) 12.5 mg PO DAILY [facility] Last Admin: 10/09/17 14:49 Dose: Not Given Sodium Chloride (Sodium Chloride 0.45%) 1,000 mls @ 80 mls/hr IV .[id number] [facility] Last Admin: 10/10/17 09:38 Dose: 80 mls/hr Metronidazole (Flagyl) 500 mg in 100 mls @ 100 mls/hr IVPB Q8 [facility] PRN Reason: Protocol Stop: 10/18/17 14:01 Last Admin: 10/10/17 06:08 Dose: 100 mls/hr Insulin Human Regular (Humulin R Med) 0 units SC ACHS [facility] PRN Reason: Protocol Last Admin: 10/10/17 09:33 Dose: 3 units Metoprolol Succinate (Toprol Xl) 100 mg PO BRK [facility] Last Admin: 10/10/17 09:35 Dose: 100 mg Nifedipine (Procardia Xl) 60 mg PO DAILY [facility] Last Admin: 10/10/17 09:34 Dose: 60 mg Sertraline HCl (Zoloft) 200 mg PO DAILY [facility] Last Admin: 10/10/17 09:34 Dose: 200 mg Sitagliptin Phosphate (Januvia) 100 mg PO DAILY [facility] Last Admin: 10/10/17 09:34 Dose: 100 mg Valsartan (Diovan) 320 mg PO DAILY [facility] Last Admin: 10/09/17 10:00 Dose: Not Given Vancomycin HCl (Vancocin 25 Mg/Ml (Oral Use)) 125 mg PO QID [facility] PRN Reason: Protocol Last Admin: 10/10/17 11:20 Dose: 125 mg - Labs Labs: 10/10/17 06:15 10/10/17 06:15 PT 14.4 SECONDS (9.4-12.5) H 10/08/17 14:30 INR 1.26 (0.93-1.08) H 10/08/17 14:30 APTT 28.8 Seconds (25.1-36.5) 10/08/17 14:30
--- NOTE | 2017-10-10 17:51 | PN ---
DATE: SUBJECTIVE: She is sitting out of bed to chair. Family is present. She is doing much better. She is happy. She is eating. She is smiling. She is in good spirits. No complaints. MEDICATIONS: She is on IV fluids, Diovan, metronidazole IV, glipizide, insulin coverage, Januvia, Lipitor, Microzide, Procardia, Toprol, vancomycin p.o., Xanax and Zoloft. PHYSICAL EXAMINATION VITAL SIGNS: 98.4 temperature, 90 pulse, 112/48 blood pressure, 22 respiratory rate, 95% sat on room air. HEENT: Head is atraumatic, normocephalic. HEART: Regular rate. LUNGS: Clear to auscultation. ABDOMEN: Soft, obese, nontender. EXTREMITIES: No edema. LABORATORY DATA: She has a 140 sodium, potassium is 3.8, BUN is down to 48, creatinine is down to 2.8 which is really doing much better. Her renal failure, kidney injury is improving. Last blood sugar was 206, calcium was 8.9, total bili is 0.2, AST is 59, ALT is 42, alk phos is 54, total protein 6.6. She is being seen by Renal, Infectious Disease. I do think she is starting to improve. If the numbers are good, I will try and discharge her tomorrow. She has had leukocytosis, rule out C. difficile, acute kidney injury, acute kidney failure. Douglas Perales DO
[2017-10-11] MEDS ORDERED: guaiFENesin 100 mg/5 ml Syrup UD PO STA (01:17)
--- NOTE | 2017-10-11 05:26 | PN ---
DATE: 10/10/2017 SUBJECTIVE: No fevers. No chills. PHYSICAL EXAMINATION VITAL SIGNS: Temperature 98, blood pressure is 100/60, and respiratory rate of 20. HEENT: Unremarkable. NECK: Supple. LUNGS: Have decreased breath sounds. HEART: Normal S1 and S2. ABDOMEN: Soft, nontender. LABORATORY EXAMINATION: Reveals a white count of 13,500, hemoglobin of 10, platelets 196, BUN of 48, creatinine of 2.8, procalcitonin of 0.05. Urinalysis is noted. Microbiology revealed blood cultures have no growth, and C. diff antigen and toxin are negative. ASSESSMENT AND PLAN: This is a 77-year-old female with dementia, high cholesterol, diabetes, hypertension, depression, was treated with Levaquin for upper respiratory infection, now presenting with diarrhea and leukocytosis. 1. Leukocytosis with acute kidney injury, creatinine exchanged from 1.4 to 4.2 from last admission. The patient is on Lopressor and on IV Flagyl. Given negative C. difficile antigen and negative C. difficile toxin, with renal function improving now down to 2.8 from 4.2, more consistent with dehydration and intrinsic underlying kidney disease protein with negative blood cultures and white count has improved to 13,500, we will discontinue the p.o. vancomycin, continue the Flagyl. The patient was on outpatient Levaquin, and we will check on the urine culture. We will also send stool for norovirus. Also, at this time as of this morning when I spoke to her, she did not have any diarrhea. We will check on norovirus antigen and stool and a rotavirus antigen. The patient has not had any recent travel. Elliott Lorenzo MD
[2017-10-11] MEDS: metroNIDAZOLE IV 500 mg/100 ml 500 MG/100 ML BAG IVPB SCH ×3 (05:51→22:06)
[2017-10-11] MEDS ORDERED: Promethazine DM 6.25 mg-15 mg/5 ml Syrup PO PRN ×2 (07:54→07:55)
[2017-10-11] MEDS: Insulin Reg-MEDIUM-Coverage SC SCH ×4 (08:45→22:07)
[2017-10-11 09:10] VITALS: RESP 20
[2017-10-11] MEDS: Metoprolol Succinate 100 mg XL Tab PO SCH (10:36)
[2017-10-11] MEDS: NIFEdipine 60 mg ER Tab PO SCH (10:36)
[2017-10-11] MEDS ORDERED: Potassium Chloride 20 mEq ER Tab PO ONE (11:58)
--- NOTE | 2017-10-11 12:35 | PN ---
DATE: SUBJECTIVE: I saw her sitting out of bed to chair with family present. She is now congested and coughing. They want some cough medicine, which sounds reasonable. She has done it from time to time. She is smiling. She wants to go home, but clinically, she looks a little bit worse. [facility], we have called the [facility], got a swallow evaluation. Give her some Robitussin. PHYSICAL EXAMINATION VITAL SIGNS: She has a 98.4 temperature, 90 pulse, 112/48 blood pressure, 22 respiratory rate, 95% O2 saturation on room air. HEENT: Head is atraumatic, normocephalic. Throat is moist. NECK: Supple. HEART: Regular rate. LUNGS: Congestion bilaterally, changes with cough. ABDOMEN: Soft, obese. EXTREMITIES: No edema. MEDICATIONS: She is on Diovan, Flagyl, Glucotrol, Januvia, Lipitor, Microzide, Procardia, intravenous fluids, which I will decrease the rate, Toprol, Xanax, Zoloft. I will add Robitussin and some Xopenex. LABORATORY DATA: She has a 13.5 white count yesterday, it is still coming down, 10.6 hemoglobin, 196 platelets are still continuing to come down. Waiting for labs from this morning, 158 blood sugar. ASSESSMENT AND PLAN: She is being seen by Infectious Disease and Renal. I will call on Pulmonary. Continue with aggressive treatment and care on [facility]. She sepsis with 22,000 white count, Clostridium difficile, renal failure, acute kidney injury. The patient, however, continues to improve and now her lungs are congested. Douglas Perales DO MTDD
[2017-10-11] MEDS: Sodium Chloride 0.45% 1,000 ML IV SCH (16:40)
--- NOTE | 2017-10-11 16:41 | CP.PCM.PN ---
Subjective - Date & Time of Evaluation Date of Evaluation: 10/11/17 Time of Evaluation: 12:40 - Subjective Subjective: Comfortable in bed, no fevers overnight. Objective - Vital Signs/Intake and Output Vital Signs (last 24 hours): Temp Pulse Resp BP Pulse Ox 97.2 F L 90 20 135/65 95 10/11/17 08:00 10/11/17 10:36 10/11/17 08:00 10/11/17 10:36 10/11/17 08:00 Intake and Output: 10/11/17 10/11/17 06:59 18:59 Intake Total 60 Output Total 1200 Balance -1140 - Medications Medications: Current Medications Alprazolam (Xanax) 1 mg PO BID [facility] PRN Reason: Protocol Last Admin: 10/11/17 10:33 Dose: 1 mg Atorvastatin Calcium (Lipitor) 10 mg PO HS [facility] Last Admin: 10/10/17 23:20 Dose: 10 mg Glipizide (Glucotrol) 2.5 mg PO BID [facility] Last Admin: 10/11/17 10:34 Dose: 2.5 mg Hydrochlorothiazide (Microzide) 12.5 mg PO DAILY [facility] Last Admin: 10/09/17 14:49 Dose: Not Given Sodium Chloride (Sodium Chloride 0.45%) 1,000 mls @ 80 mls/hr IV .[id number] [facility] Last Admin: 10/10/17 23:21 Dose: 80 mls/hr Metronidazole (Flagyl) 500 mg in 100 mls @ 100 mls/hr IVPB Q8 [facility] PRN Reason: Protocol Stop: 10/18/17 14:01 Last Admin: 10/11/17 13:45 Dose: 100 mls/hr Insulin Human Regular (Humulin R Med) 0 units SC ACHS [facility] PRN Reason: Protocol Last Admin: 10/11/17 13:43 Dose: Not Given Levalbuterol HCl (Xopenex) 0.63 mg IH [id number] PRN PRN Reason: Shortness of Breath Metoprolol Succinate (Toprol Xl) 100 mg PO BRK [facility] Last Admin: 10/11/17 10:36 Dose: 100 mg Nifedipine (Procardia Xl) 60 mg PO DAILY [facility] Last Admin: 10/11/17 10:36 Dose: 60 mg Promethazine HCl/Dextromethorphan (Phenergan Dm Syrup) 5 ml PO Q6H PRN PRN Reason: Cough Sertraline HCl (Zoloft) 200 mg PO DAILY [facility] Last Admin: 10/11/17 10:34 Dose: 200 mg Sitagliptin Phosphate (Januvia) 100 mg PO DAILY [facility] Last Admin: 10/11/17 10:34 Dose: 100 mg Valsartan (Diovan) 320 mg PO DAILY [facility] Last Admin: 10/09/17 10:00 Dose: Not Given - Labs Labs: 10/10/17 06:15 10/10/17 06:15 PT 14.4 SECONDS (9.4-12.5) H 10/08/17 14:30 INR 1.26 (0.93-1.08) H 10/08/17 14:30 APTT 28.8 Seconds (25.1-36.5) 10/08/17 14:30 - Constitutional Appears: Non-toxic - Head Exam Head Exam: NORMAL INSPECTION - Respiratory Exam Respiratory Exam: Decreased Breath Sounds - Cardiovascular Exam Cardiovascular Exam: +S1, +S2 - GI/Abdominal Exam GI & Abdominal Exam: Soft. absent: Tenderness Assessment and Plan - Assessment and Plan (Free Text) Plan: Assessment diarrhea, consider gastroenteritis, with leukocytosis, improving, with no evidence of C. diff. dementia dyslipidemia DM HTN depression Plan continue patient on Flagyl and wfollow up stool cx and stool for norovirus will monitor clinically
[2017-10-11] MEDS: Levalbuterol 0.63 MG/3 ML Inhal Soln UD IH PRN ×2 (17:53→21:23)
--- NOTE | 2017-10-11 18:22 | CP.PCM.PN ---
Subjective - Date & Time of Evaluation Date of Evaluation: 10/11/17 Time of Evaluation: 11:00 - Subjective Subjective: Follow up Nephrology Consultation Note Assessment: Stable Acute Kidney Injury (N17.9) likely due to GI volume loss (gastroenteritis): improving Diabetic chronic Kidney Disease (E11.22) Hypertensive Chronic Kidney Disease (I12.9) Chronic Kidney Disease (N18.3) Stage 3 likely due to DM/HTN/Age related decline (baseline cr 1.1-1.4) Anemia (D64.9), HTN (I12.9) left renal complex cyst Plan No acute need for renal replacement therapy at this time. Hypertension control with meds as ordered. Patient not on ACEI/ARB due to recent RED. hold diuretics Monitor Input/Output, daily weights and renal function with basic metabolic panel continue with IVF supplement electrolytes repeat renal sonogram 6 months for complex cyst follow up will check Vit D/PTH/TSAT/Ferritin Dose meds/antibiotics for reduced GFR. Avoid fleets enema/magnesium based laxatives. Avoid nephrotoxins/NSAIDs/ iodinated contrast (unless needed emergently) Glycemic control Further work up for as per primary team Thanks for allowing me to participate in care of your patient. Will follow patient with you. Please call if any Qs. d/w team and family Dr Jatin Hernandez Office: [phone] Subjective: Noted events overnight. Patients feels okay. Denies chest pain, palpitation, shortness of breath, leg swelling. All other negative. has dementia Physical Examination: General Appearance: Comfortable, in no acute respiratory distress, co-operative . Vitals reviewed and noted as below Head; Atraumatic, normocephalic ENT: no ulcers no thrush. Tongue is midline and dry. Oropharynx: no rash or ulcers. EYES: Pupils are equal, round and reactive to light accommodation. Eye muscles and extraocular movement intact. Sclera is anicteric. Neck; supple no lymphadenopathy, no thyromegaly or bruit Lungs: Normal respiratory rate/effort. Breath sounds bilateral equal and clear Heart: Normal rate. s1s2 normal. No rub or gallop. Extremities: no edema. No varicose veins Neurological: Patient is alert, awake and demented. No focal deficit. Strength bilateral appropriate and equal Skin: Warm and dry. Normal turgor. No rash. Palpitation: Normal elasticity for age Abdomen: Abdomen is soft. Bowel sounds +. There is no abdominal tenderness, no guarding/rigidity no organomegaly Psych: normal insight and normal affect/mood MSK: no joint tenderness or swelling. Digits and nails normal, no deformity : kidney or bladder not palpable Labs/imaging reviewed. Past medical history, past surgical history, family history, social history, allergy reviewed and noted as below Family hx: no hx of CKD. Rest non-contributory Objective - Vital Signs/Intake and Output Vital Signs (last 24 hours): Temp Pulse Resp BP Pulse Ox 97.2 F L 93 H 20 135/65 95 10/11/17 08:00 10/11/17 18:00 10/11/17 08:00 10/11/17 10:36 10/11/17 08:00 Intake and Output: 10/11/17 10/11/17 06:59 18:59 Intake Total 60 Output Total 1200 Balance -1140 - Medications Medications: Current Medications Alprazolam (Xanax) 1 mg PO BID [facility] PRN Reason: Protocol Last Admin: 10/11/17 17:39 Dose: 1 mg Atorvastatin Calcium (Lipitor) 10 mg PO HS [facility] Last Admin: 10/10/17 23:20 Dose: 10 mg Glipizide (Glucotrol) 2.5 mg PO BID [facility] Last Admin: 10/11/17 17:39 Dose: 2.5 mg Hydrochlorothiazide (Microzide) 12.5 mg PO DAILY [facility] Last Admin: 10/09/17 14:49 Dose: Not Given Sodium Chloride (Sodium Chloride 0.45%) 1,000 mls @ 80 mls/hr IV .[id number] [facility] Last Admin: 10/11/17 16:40 Dose: 80 mls/hr Metronidazole (Flagyl) 500 mg in 100 mls @ 100 mls/hr IVPB Q8 [facility] PRN Reason: Protocol Stop: 10/18/17 14:01 Last Admin: 10/11/17 13:45 Dose: 100 mls/hr Insulin Human Regular (Humulin R Med) 0 units SC ACHS [facility] PRN Reason: Protocol Last Admin: 10/11/17 17:00 Dose: Not Given Levalbuterol HCl (Xopenex) 0.63 mg IH [id number] PRN PRN Reason: Shortness of Breath Last Admin: 10/11/17 17:53 Dose: 0.63 mg Metoprolol Succinate (Toprol Xl) 100 mg PO BRK [facility] Last Admin: 10/11/17 10:36 Dose: 100 mg Nifedipine (Procardia Xl) 60 mg PO DAILY [facility] Last Admin: 10/11/17 10:36 Dose: 60 mg Promethazine HCl/Dextromethorphan (Phenergan Dm Syrup) 5 ml PO Q6H PRN PRN Reason: Cough Sertraline HCl (Zoloft) 200 mg PO DAILY [facility] Last Admin: 10/11/17 10:34 Dose: 200 mg Sitagliptin Phosphate (Januvia) 100 mg PO DAILY [facility] Last Admin: 10/11/17 10:34 Dose: 100 mg Valsartan (Diovan) 320 mg PO DAILY [facility] Last Admin: 10/09/17 10:00 Dose: Not Given - Labs Labs: 10/10/17 06:15 10/10/17 06:15 PT 14.4 SECONDS (9.4-12.5) H 10/08/17 14:30 INR 1.26 (0.93-1.08) H 10/08/17 14:30 APTT 28.8 Seconds (25.1-36.5) 10/08/17 14:30
--- NOTE | 2017-10-11 19:28 | CON ---
PULMONARY CONSULTATION DATE: 10/11/2017 REFERRING PHYSICIAN: Douglas Perales DO REASON FOR CONSULTATION: Cough. HISTORY OF PRESENT ILLNESS: The patient is a 77-year-old female, with past medical history significant for dementia, hyperlipidemia, diabetes mellitus, hypertension, and depression, recent upper respiratory tract infection (status post Levaquin), who presents to [facility] with increasing weakness and diarrhea for the past few days. In the Emergency Room, the patient was noted to have a leukocytosis. She was thus admitted for additional evaluation. I did discuss the case with the patient and daughter at length. There is no history of shortness of breath at rest or dyspnea on exertion. There is a history of trouble swallowing with occasional sporadic coughing - over the past year. There is no history of significant sputum production. There is no history of chest pain, coughing up of blood, or chest pain - made worse with deep respirations. There is no history of temperatures, chills, or infectious exposure. There is no history of night sweats, weight loss or appetite change prior to the above events. No history of leg or calf pains. No history of syncope or diaphoresis. No history of recent travel or trauma. REVIEW OF SYSTEMS: No acute urinary symptoms. No new musculoskeletal complaints. Rest of the review of systems negative. ALLERGIES: TOMATOES. SOCIAL HISTORY: Negative for tobacco and negative for alcohol. FAMILY HISTORY: No inheritable diseases. HOME MEDICATIONS: Include Diovan, Janumet, Zoloft, Procardia, Lopressor, Glucotrol, Aricept, Zyrtec, Lipitor, and Xanax. PHYSICAL EXAMINATION: GENERAL: The patient appears comfortable this morning. She is not short of breath at rest. VITAL SIGNS: Temperature is 97.2, pulse is 90, respirations are 18, blood pressure is 135/56, and oxygen saturation on room air is 95%. HEENT: Normocephalic and atraumatic. NECK: No JVD. CARDIOVASCULAR: Positive S1 and S2. No S3, gallop. LUNGS: Clear bilaterally. EXTREMITIES: No clubbing, cyanosis, or edema. Calves are nontender to palpation. GASTROINTESTINAL: Abdomen is soft, nontender, and nondistended. Bowel sounds are positive. SKIN: No acute rash. NEUROLOGIC: Limited at the present time. PERTINENT LABORATORY DATA: Chest x-ray was done on 10/08/2017 and reviewed. There is no active disease present. CBC: White count 13.5, hemoglobin 10.6, hematocrit 34.3, and platelets of 196,000. Initial white count 22,800. Complete metabolic profile: Chloride 109, carbon dioxide 20, BUN 48, creatinine 2.8, glucose 206, and AST 59. Rest of the metabolic profiles within normal limits. IMPRESSION 1. Gastroenteritis. 2. Probable dehydration. 3. Renal insufficiency. 4. Dysphagia. 5. Periodic bronchospasm. 6. Mild anemia. PLAN: Again, I did discuss the case with the patient and daughter at length. I have also discussed the case with the nurse at length. The patient presents to [facility] with main complaints of increasing weakness and diarrhea for the past few days. As above, the patient was recently treated for an upper respiratory tract infection-- with Levaquin. Input by Dr. Lorenzo is noted. I would continue with the antibiotic coverage as per Infectious Disease. There are no temperatures noted. The leukocytosis is resolving. The patient does have a history of dysphagia over the past year. A swallowing evaluation has been ordered. As above, the family does relate the history of periodic coughing. At the time of my examination, the patient's lungs are clear. Oxygen saturation on room air is 95%. Again, a swallowing evaluation has been ordered. The patient has also been placed on nebulizer treatments - p.r.n. basis. I will continue to follow the patient closely with you. I will discuss the above with Dr. Perales in the next few moments. Thank you very much for this pulmonary consultation. Tylor Montes MD [facility]
[2017-10-12] MEDS: metroNIDAZOLE IV 500 mg/100 ml 500 MG/100 ML BAG IVPB SCH (05:39)
[2017-10-12] MEDS: Sodium Chloride 0.45% 1,000 ML IV SCH (05:43)
[2017-10-12] MEDS: Levalbuterol 0.63 MG/3 ML Inhal Soln UD IH PRN (06:10)
[2017-10-12 07:55] LABS: HEMOGLOBIN 10.4 g/dL (12.0-16.0); MEAN CELL VOLUME 86.8 fl (80.0-105.0); MEAN CORPUSCULAR HEMOGLOBIN 26.9 pg (25.0-35.0); MEAN PLATELET VOLUME 9.7 fl (7.0-11.0); RBC 3.87 10^6/uL (3.5-6.1); RED CELL DISTRIBUTION WIDTH 14.5 % (11.5-14.5); WHITE BLOOD COUNT 16.5 10^3/ul (4.5-11.0)
[2017-10-12 08:22] LABS: ALB/GLOB RATIO 1.1 (1.1-1.8); ALBUMIN 3.5 g/dL (3.0-4.8); CALCIUM 8.6 mg/dL (8.4-10.5)
[2017-10-12] MEDS: Insulin Reg-MEDIUM-Coverage SC SCH ×2 (08:27→12:02)
--- NOTE | 2017-10-12 08:34 | PN ---
DATE: 10/12/2017 PULMONARY PROGRESS NOTE SUBJECTIVE: The patient appears comfortable this morning. She is not short of breath at rest. OBJECTIVE: VITAL SIGNS: The last temperature recorded was 99.6. Pulse this morning is 80, respirations are 18, and blood pressure is 122/60. Oxygen saturation on room air is 96%. HEENT: Normocephalic and atraumatic. NECK: No JVD. CARDIOVASCULAR: Positive S1 and S2. No S3 gallop. LUNGS: Clear bilaterally. EXTREMITIES: No clubbing, cyanosis or edema. Calves are nontender to palpation. GASTROINTESTINAL: Abdomen is soft, nontender, and nondistended. Bowel sounds are positive. SKIN: No acute rash. NEUROLOGIC: Limited at the present time. IMPRESSION: 1. Gastroenteritis. 2. Probable dehydration. 3. Renal insufficiency. 4. Dysphagia. 5. Periodic bronchospasm. 6. Mild anemia. PLAN: The patient appears comfortable this morning. She is not short of breath at rest. She does state to feeling much better overall. On physical exam, her lungs remain clear. In addition, the oxygen saturation on room air is 96%. I will continue with the nebulizer treatments on a p.r.n. basis. I would continue with the antibiotic coverage as per Infectious Disease. Temperatures are resolving. The leukocytosis is resolving. Repeat a.m. labs are pending. I would continue with the Renal evaluation, input is noted. Clinical status of the patient is significantly improved overall. She is for discharge in the near future. I did give my card/information to the daughter for a followup appointment for her mother, she agrees. I will discuss the above with Dr. Perales. Tylor Montes MD [facility]
[2017-10-12] MEDS: Metoprolol Succinate 100 mg XL Tab PO SCH ×2 (09:10→09:24)
[2017-10-12] MEDS: NIFEdipine 60 mg ER Tab PO SCH ×2 (09:11→09:24)
[2017-10-12 09:25] VITALS: BP 112/46; PULSE 87
[2017-10-12] MEDS ORDERED: Potassium Chloride 20 mEq ER Tab PO ONE (09:25)
[2017-10-12 10:31] VITALS: TEMP 97.8; O2SAT 94
--- NOTE | 2017-10-12 12:25 | CP.PCM.PN ---
Subjective - Date & Time of Evaluation Date of Evaluation: 10/12/17 Time of Evaluation: 12:24 - Subjective Subjective: Follow up Nephrology Consultation Note Assessment: Stable Acute Kidney Injury (N17.9) likely due to GI volume loss (gastroenteritis): resolved Diabetic chronic Kidney Disease (E11.22) Hypertensive Chronic Kidney Disease (I12.9) Chronic Kidney Disease (N18.3) Stage 3 likely due to DM/HTN/Age related decline (baseline cr 1.1-1.4) Anemia (D64.9), HTN (I12.9) left renal complex cyst vitamin D insuff and iron def anemia Plan No acute need for renal replacement therapy at this time. renal function close to baseline now Hypertension control with meds as ordered. Patient not on ACEI/ARB due to recent RED. hold diuretics. BP well controlled without these meds Monitor Input/Output, daily weights and renal function with basic metabolic panel d/c IVF supplement electrolytes repeat renal sonogram 6 months for complex cyst follow up elissa start iron and weekly Vit D supplements, MVI Dose meds/antibiotics for reduced GFR. Avoid fleets enema/magnesium based laxatives. Avoid nephrotoxins/NSAIDs/ iodinated contrast (unless needed emergently) Glycemic control Further work up for as per primary team pt stable for d/c from renal perspective when planned with outpt renal follow up in 2 weeks Thanks for allowing me to participate in care of your patient. Will follow patient with you. Please call if any Qs. d/w family Dr Jatin Hernandez Office: [phone] Subjective: Noted events overnight. Patients feels okay. Denies chest pain, palpitation, shortness of breath, leg swelling. All other negative. has dementia Physical Examination: General Appearance: Comfortable, in no acute respiratory distress, co-operative . Vitals reviewed and noted as below Head; Atraumatic, normocephalic ENT: no ulcers no thrush. Tongue is midline and dry. Oropharynx: no rash or ulcers. EYES: Pupils are equal, round and reactive to light accommodation. Eye muscles and extraocular movement intact. Sclera is anicteric. Neck; supple no lymphadenopathy, no thyromegaly or bruit Lungs: Normal respiratory rate/effort. Breath sounds bilateral equal and clear Heart: Normal rate. s1s2 normal. No rub or gallop. Extremities: no edema. No varicose veins Neurological: Patient is alert, awake and demented. No focal deficit. Strength bilateral appropriate and equal Skin: Warm and dry. Normal turgor. No rash. Palpitation: Normal elasticity for age Abdomen: Abdomen is soft. Bowel sounds +. There is no abdominal tenderness, no guarding/rigidity no organomegaly Psych: normal insight and normal affect/mood MSK: no joint tenderness or swelling. Digits and nails normal, no deformity : kidney or bladder not palpable Labs/imaging reviewed. Past medical history, past surgical history, family history, social history, allergy reviewed and noted as below Family hx: no hx of CKD. Rest non-contributory Objective - Vital Signs/Intake and Output Vital Signs (last 24 hours): Temp Pulse Resp BP Pulse Ox 97.8 F 87 20 112/46 L 94 L 10/12/17 07:00 10/12/17 09:24 10/12/17 07:00 10/12/17 09:24 10/12/17 07:00 Intake and Output: 10/12/17 10/12/17 06:59 18:59 Intake Total 1080 Output Total 0 Balance 1080 - Medications Medications: Current Medications Alprazolam (Xanax) 1 mg PO BID OBEY PRN Reason: Protocol Last Admin: 10/12/17 09:10 Dose: 1 mg Atorvastatin Calcium (Lipitor) 10 mg PO HS PENDING SALE TO [facility] Last Admin: 10/11/17 22:06 Dose: 10 mg Ergocalciferol (Drisdol 50,000 Intl Units Cap) 1 cap PO Q7D PENDING SALE TO [facility] Ferrous Gluconate (Fergon) 324 mg PO TID PENDING SALE TO [facility] Glipizide (Glucotrol) 2.5 mg PO BID PENDING SALE TO [facility] Last Admin: 10/12/17 09:11 Dose: 2.5 mg Hydrochlorothiazide (Microzide) 12.5 mg PO DAILY PENDING SALE TO [facility] Last Admin: 10/09/17 14:49 Dose: Not Given Metronidazole (Flagyl) 500 mg in 100 mls @ 100 mls/hr IVPB Q8 OBEY PRN Reason: Protocol Stop: 10/18/17 14:01 Last Admin: 10/12/17 05:39 Dose: 100 mls/hr Insulin Human Regular (Humulin R Med) 0 units SC ACHS OBEY PRN Reason: Protocol Last Admin: 10/12/17 12:02 Dose: Not Given Levalbuterol HCl (Xopenex) 0.63 mg IH [id number] PRN PRN Reason: Shortness of Breath Last Admin: 10/12/17 06:10 Dose: 0.63 mg Metoprolol Succinate (Toprol Xl) 100 mg PO BRK PENDING SALE TO [facility] Last Admin: 10/12/17 09:24 Dose: Not Given Nifedipine (Procardia Xl) 60 mg PO DAILY PENDING SALE TO [facility] Last Admin: 10/12/17 09:24 Dose: Not Given Promethazine HCl/Dextromethorphan (Phenergan Dm Syrup) 5 ml PO Q6H PRN PRN Reason: Cough Sertraline HCl (Zoloft) 200 mg PO DAILY PENDING SALE TO [facility] Last Admin: 10/12/17 09:10 Dose: 200 mg Sitagliptin Phosphate (Januvia) 100 mg PO DAILY PENDING SALE TO [facility] Last Admin: 10/12/17 09:10 Dose: 100 mg Valsartan (Diovan) 320 mg PO DAILY PENDING SALE TO [facility] Last Admin: 10/09/17 10:00 Dose: Not Given - Labs Labs: 10/12/17 07:30 10/12/17 07:30 PT 14.4 SECONDS (9.4-12.5) H 10/08/17 14:30 INR 1.26 (0.93-1.08) H 10/08/17 14:30 APTT 28.8 Seconds (25.1-36.5) 10/08/17 14:30
[2017-10-12] MEDS ORDERED: Ergocalciferol 50,000 Intl Units Cap PO SCH (12:30)
[2017-10-12 14:54] LABS: ROTAVIRUS AG Not Detected (Not Detected)
--- NOTE | 2017-10-13 02:35 | PN ---
DATE: 10/12/2017 SUBJECTIVE: The patient is in bed, in no acute distress, nontoxic. PHYSICAL EXAMINATION VITAL SIGNS: Temperature 97, blood pressure is 112/60, reparatory rate 20, heart rate is 81. HEENT: Unremarkable. NECK: Supple. LUNGS: Decreased breath sounds. CARDIOVASCULAR: Normal S1 and S2. ABDOMEN: Soft and nontender. LABORATORY DATA: Revealed white count 95083, hemoglobin of 10, platelets of 190. Chemistry revealed BUN of 27, creatinine of 1.3. Urinalysis is noted. Microbiology revealed the yeast in urine and C.diff is negative toxin and antigen. ASSESSMENT AND PLAN: This is a 77-year-old female with dementia, high cholesterol, diabetes, hypertension, depression, who was treated with Levaquin for upper respiratory tract infection with persistent leukocytosis and acute kidney injury. Patient had leukocytosis since 2011, recommended a Hematology consult, it has progressed with Dr. Douglas Perales and follow up with WBCs closely. Elliott Lorenzo MD
--- NOTE | 2017-10-13 07:50 | DS ---
HISTORY OF PRESENT ILLNESS: She is sitting out of bed to chair this morning. She is doing well. She is with her family. She is much improved. No more cough. She was here for acute kidney injury and sepsis, possibility of C. diff, constipation and congestion. She has vitamin D deficiency and iron-deficiency anemia. She finally is well enough that she could be discharged. PHYSICAL EXAMINATION: VITAL SIGNS: 97.8 temp, 87 pulse, 112/46 blood pressure, 20 respiratory rate, 94% O2 sat on room air. HEENT: Head is atraumatic, normocephalic. She is very alert. Eyes are open wide. Throat is moist. NECK: Supple. HEART: Regular rate. LUNGS: Clear to auscultation. Yesterday, they were very junky; today they are very clear. No wheezes, rhonchi or rales. ABDOMEN: Soft, nontender. Positive bowel sounds. EXTREMITIES: No edema. She is walking well. MEDICATIONS: She went home on her medications, Diovan, Drisdol, Fergon, Glucotrol, Januvia, potassium, Lipitor, Microzide, Phenergan DM, Procardia, Feratab, Toprol, Xanax, Xopenex and Zoloft. LABORATORY DATA: She has a 142 sodium, potassium 3.5, BUN 27, creatinine 1.3. When she came in, her creatinine was 4. She is doing much better. She was instructed to drink a lot of water. Her sugar was 151, it came down to 124. Iron is 47, total iron binding capacity is 291, percent saturation of iron is 16. She is on iron. AST was 45, ALT was 42, alk phos was 53. ASSESSMENT AND PLAN: She was seen by numerous physicians, Infectious Disease, Renal, Pulmonary. We tried to get Hematology to see her before she left. She has had a persistent white count, it was 16.5, hemoglobin 10.4, hematocrit 33.6, platelets of 190. We tried to get her to a Radio Interference Supervisor in the past; it never was successful. We will try her again to get her to a [employer] Interference Super[facility], but otherwise she is improved. I will see her on a house call. Douglas Perales DO
[2017-10-13] MEDS ORDERED: Multivitamin Therapeutic Tab PO SCH (08:00)
== END 2017-10-12 14:27 | disposition home or self-care (01) | DRG 682 ==
LOC: ED 12:35 → ERH 18:00 → 5RSO 19:14
PROVIDERS: ADMIT Family Medicine; ATTEND Family Medicine
DX: N17.9 Acute kidney failure, unspecified (principal); A41.9 Sepsis, unspecified organism; E87.2 Acidosis; E11.22 Type 2 diabetes mellitus with diabetic chronic kidney disease; I50.9 Heart failure, unspecified; I13.0 Hypertensive heart and chronic kidney disease with heart failure and stage 1 through stage 4 chronic kidney disease, or unspecified chronic kidney disease; R13.10 Dysphagia, unspecified; M48.56XA Collapsed vertebra, not elsewhere classified, lumbar region, initial encounter for fracture; J06.9 Acute upper respiratory infection, unspecified; J98.01 Acute bronchospasm; K52.9 Noninfective gastroenteritis and colitis, unspecified; M48.061 Spinal stenosis, lumbar region without neurogenic claudication; N18.3 Chronic kidney disease, stage 3 (moderate); E55.9 Vitamin D deficiency, unspecified; D50.9 Iron deficiency anemia, unspecified; E78.00 Pure hypercholesterolemia, unspecified; E78.5 Hyperlipidemia, unspecified; F03.90 Unspecified dementia, unspecified severity, without behavioral disturbance, psychotic disturbance, mood disturbance, and anxiety; E86.0 Dehydration; Z79.899 Other long term (current) drug therapy; Z86.39 Personal history of other endocrine, nutritional and metabolic disease; Z87.01 Personal history of pneumonia (recurrent); Z87.440 Personal history of urinary (tract) infections; Z91.018 Allergy to other foods

== ENCOUNTER 2017-12-29 08:47 | Emergency (ER) | payer MEDICARE ==
[2017-12-29 08:48] VITALS: BMI 32.1
[2017-12-29 09:31] VITALS: RESP 18; TEMP 97.6
[2017-12-29] MEDS ORDERED: Morphine 4 mg/ml ISec IM STA (09:58)
--- NOTE | 2017-12-29 10:48 | CT ---
PROCEDURE: CT HEAD WITHOUT CONTRAST. HISTORY: fall COMPARISON: 05/14/2013 TECHNIQUE: Axial computed tomography images were obtained through the head/brain without intravenous contrast. Radiation dose: Total exam DLP = 887 mGy-cm. This CT exam was performed using one or more of the following dose reduction techniques: Automated exposure control, adjustment of the mA and/or kV according to patient size, and/or use of iterative reconstruction technique. FINDINGS: HEMORRHAGE: No intracranial hemorrhage. BRAIN: No mass effect or edema. No atrophy or chronic microvascular ischemic changes. VENTRICLES: Unremarkable. No hydrocephalus. CALVARIUM: Unremarkable. PARANASAL SINUSES: Unremarkable as visualized. No significant inflammatory changes. MASTOID AIR CELLS: Unremarkable as visualized. No inflammatory changes. OTHER FINDINGS: None. IMPRESSION: Normal CT of the Head.
--- NOTE | 2017-12-29 10:51 | ED PDOC ---
Arrival/HPI - General Chief Complaint: Trauma Time Seen by Provider: 12/29/17 09:57 Historian: Patient - History of Present Illness Narrative History of Present Illness (Text): 12/29/17 10:30 77-year-old female presents today with left shoulder pain status post fall around 4 AM this morning. Patient patient's daughter at bedside states that the patient has been having frequent falls from her shuffling gait. Patient has been being followed by the neurologist. They believe that the patient may have dementia. The patient states that this morning she got out of bed to go to the bathroom and fell. She denied having any dizziness chest pain or shortness of breath. Patient denies any headache at present time. Patient's daughter states that the patient is acting appropriate. The patient's states that he heard the patient fall and picked her up off of the ground at 4:00 in the morning. Patient denies chest pain or shortness of breath at present time. Denies abdominal pain. Denies back pain. Denies neck pain. Past Medical History - Infectious Disease Hx of Infectious Diseases: None - Tetanus Immunization Tetanus Immunization: Unknown - Reproductive Menopause: Yes - Cardiac Hx Cardiac Disorders: Yes Hx Congestive Heart Failure: Yes Hx Hypertension: Yes - Pulmonary Hx Pneumonia: Yes - Neurological Hx Dementia: Yes - HEENT Hx HEENT Disorder: No - Renal Hx Renal Disorder: No - Endocrine/Metabolic Hx Diabetes Mellitus Type 2: Yes - Hematological/Oncological Hx Blood Disorders: No - Integumentary Hx Dermatological Disorder: No - Musculoskeletal/Rheumatological Hx Arthritis: Yes - Gastrointestinal Hx Gastrointestinal Disorders: No - Genitourinary/Gynecological Hx Urinary Tract Infection: Yes - Psychiatric Hx Depression: No Hx Emotional Abuse: No Hx Physical Abuse: No Hx Substance Use: No - Past Surgical History Past Surgical History: No Previous - Anesthesia Hx Anesthesia: No - Suicidal Assessment Feels Threatened In Home Enviroment: No Family/Social History - Physician Review Nursing Documentation Reviewed: Yes Family/Social History: Unknown Family HX Smoking Status: Never Smoked Hx Alcohol Use: No Hx Substance Use: No Hx Substance Use Treatment: No Allergies/Home Meds Allergies/Adverse Reactions: Allergies tomato Allergy (Verified 12/29/17 09:32) ITCHING Home Medications: Home Meds Medication Instructions Recorded Confirmed Alprazolam [Xanax Xr] 1 tab PO DAILY 10/08/17 12/29/17 Alprazolam [Xanax] 1 tab PO BID 10/08/17 12/29/17 Atorvastatin [Lipitor] 1 tab PO HS 10/08/17 12/29/17 Cetirizine HCl [Zyrtec] 1 cap PO PRN PRN 10/08/17 12/29/17 Diphenhydramine HCl [Sleep Aid] 1 cap PO HS PRN 10/08/17 12/29/17 Donepezil [Aricept] 1 tab PO DAILY 10/08/17 12/29/17 GlipiZIDE [Glucotrol] 10 mg PO BID 10/08/17 12/29/17 Metoprolol Tartrate [Lopressor] 1 tab PO DAILY 10/08/17 12/29/17 NIFEdipine ER [Procardia XL] 1 tab PO DAILY 10/08/17 12/29/17 Sertraline HCl [Zoloft] 200 mg PO DAILY 10/08/17 12/29/17 Sitagliptin Phos/Metformin HCl 1 tab PO BID 10/08/17 12/29/17 [Janumet 50-500 mg Tablet] Valsartan/Hydrochlorothiazide 1 tab PO DAILY 10/08/17 12/29/17 [Diovan Hct 320-12.5 mg Tab] Review of Systems - Review of Systems Constitutional: absent: Fatigue, Fevers Respiratory: absent: SOB, Cough Cardiovascular: absent: Chest Pain, Palpitations Gastrointestinal: absent: Abdominal Pain, Nausea, Vomiting Musculoskeletal: Arthralgias. absent: Back Pain, Neck Pain Skin: absent: Rash, Pruritis Neurological: absent: Headache, Dizziness Physical Exam Vital Signs Reviewed: Yes Vital Signs Temp Pulse Resp BP Pulse Ox 12/29/17 09:28 97.6 F 94 H 18 128/70 97 Temperature: Afebrile Blood Pressure: Normal Pulse: Regular Respiratory Rate: Normal Appearance: Positive for: Well-Appearing, Non-Toxic, Comfortable Pain Distress: None Mental Status: Positive for: Alert and Oriented X 3 - Systems Exam Head: Present: Atraumatic. No: Tenderness Pupils: Present: PERRL Extroacular Muscles: Present: EOMI Conjunctiva: Present: Normal Mouth: Present: Moist Mucous Membranes Neck: Present: Normal Range of Motion, Paraspinal Tenderness (+ left sided paraspinal tenderness), Trachea Midline. No: MIDLINE TENDERNESS Respiratory/Chest: Present: Clear to Auscultation, Good Air Exchange. No: Respiratory Distress, Accessory Muscle Use, Wheezes, Retracting, Tachypneic, Tender to Palpation Cardiovascular: Present: Regular Rate and Rhythm Abdomen: No: Tenderness Back: Present: Normal Inspection. No: Midline Tenderness, Paraspinal Tenderness Upper Extremity: Present: NORMAL PULSES, Tenderness (left shoulder; + ttp over the lateral aspect of the left shoulder; + ttp over clavicle; no erythema; + edema, no ecchymosis; sensation and distal pulses intact; no elbow, forearm or wrist tenderness. no lacerations or abrasions. ), Swelling, Neurovascularly Intact, Capillary Refill < 2s. No: Normal ROM, Erythema, Deformity Lower Extremity: Present: Normal ROM Neurological: Present: Speech Normal. No: Gait Normal (slow, steady shuffling gait) Skin: Present: Warm, Dry, Normal Color. No: Rashes Psychiatric: Present: Alert, Oriented x 3 Medical Decision Making ED Course and Treatment: 12/29/17 12:27 77yr old female with left shoulder pain s/p mechanical fall. pt given morphine for pain ct head; FINDINGS: HEMORRHAGE: No intracranial hemorrhage. BRAIN: No mass effect or edema. No atrophy or chronic microvascular ischemic changes. VENTRICLES: Unremarkable. No hydrocephalus. CALVARIUM: Unremarkable. PARANASAL SINUSES: Unremarkable as visualized. No significant inflammatory changes. MASTOID AIR CELLS: Unremarkable as visualized. No inflammatory changes. OTHER FINDINGS: None. IMPRESSION: Normal CT of the Head. ct c-spine: FINDINGS: VERTEBRAE: No fracture. Normal alignment. No destructive bony lesion. DISCS/SPINAL CANAL/NEURAL FORAMINA: No significant central canal or neural foraminal stenosis. Discs heights are grossly preserved. PARASPINAL SOFT TISSUES: Unremarkable. OTHER FINDINGS: None. IMPRESSION: Unremarkable CT of the cervical spine. xray left shoulder; + distal clavicular fracture xray left humerus; no fracture pt placed in sling. All results discussed in depth with the patient and family members. Patient was advised to follow-up with the orthopedist within the next 2 days. Patient was advised to use the sling during the day. Patient was advised immediately return if symptoms worsen persist or if new concerning symptoms develop Patient verbalizes understanding of discharge instructions and need for immediate followup. all aspects of this case were discussed the attending of record. impression; clavicular fracture tylenol every 4 hours as needed for pain Use sling during the day. Do not wear sling at betime Follow up with the orthopedist within the next 2 days Follow up with the Primary care physician within the next 2 days. Return immediately if symptoms worsen,persist or if new symptoms develop. Reassessment Condition: Re-examined, Improved - RAD Interpretation Radiology Orders: 12/29/17 09:59 HEAD W/O CONTRAST [CT] Stat HUMERUS LEFT [RAD] Stat SHOULDER LEFT [RAD] Stat 12/29/17 10:53 CERVICAL SPINE W/O CONTRAST [CT] Stat - Medication Orders Current Medication Orders: Discontinued Medications Morphine Sulfate (Morphine) 2 mg IM STAT STA Stop: 12/29/17 09:59 Last Admin: 12/29/17 10:22 Dose: 2 mg MAR Pain Assessment Document 12/29/17 10:22 GRISELDA (Rec: 12/29/17 10:23 GRISELDA [id number]) Pain Reassessment Is this a pain reassessment? Yes Presence of Pain Presence of Pain Yes Pain Scale Used Pain Scale Used Numeric Location Left, Right or Bilateral Left Pain Location Body Site Shoulder Description Description Sharp Intensity of Pain at present 7 IM Administration Charges Document 12/29/17 10:22 GRISELDA (Rec: 12/29/17 10:23 GRISELDA [id number]) Injection Site MAR Injection Site Right Deltoid Charges for Administration # of IM Administrations 1 Disposition/Present on Arrival - Present on Arrival Any Indicators Present on Arrival: No History of DVT/PE: No History of Uncontrolled Diabetes: No Urinary Catheter: No History of Decub. Ulcer: No History Surgical Site Infection Following: None - Disposition Have Diagnosis and Disposition been Completed?: Yes Diagnosis: Clavicular fracture Disposition: HOME/ ROUTINE Disposition Time: 12:24 Patient Plan: Discharge Condition: GOOD Discharge Instructions (ExitCare): Clavicle Fracture Additional Instructions: tylenol every 4 hours as needed for pain Use sling during the day. Do not wear sling at betime Follow up with the orthopedist within the next 2 days Follow up with the Primary care physician within the next 2 days. Return immediately if symptoms worsen,persist or if new symptoms develop. Referrals: oDuglas Perales DO [Primary Care Provider] - Follow up with primary Dorian Valdes MD [Staff Provider] - Follow up with primary Forms: [facility] (Korean)
--- NOTE | 2017-12-29 11:25 | CT ---
PROCEDURE: CT Cervical Spine without contrast HISTORY: Patient fell COMPARISON: None available. TECHNIQUE: Axial computed tomography images were obtained of the cervical spine without the use of intravenous contrast. Coronal and sagittal reformatted images were created and reviewed. Radiation dose: Total exam DLP = 558 mGy-cm. This CT exam was performed using one or more of the following dose reduction techniques: Automated exposure control, adjustment of the mA and/or kV according to patient size, and/or use of iterative reconstruction technique. FINDINGS: VERTEBRAE: No fracture. Normal alignment. No destructive bony lesion. DISCS/SPINAL CANAL/NEURAL FORAMINA: No significant central canal or neural foraminal stenosis. Discs heights are grossly preserved. PARASPINAL SOFT TISSUES: Unremarkable. OTHER FINDINGS: None. IMPRESSION: Unremarkable CT of the cervical spine.
--- NOTE | 2017-12-29 12:23 | RAD ---
PROCEDURE: Radiographs of the left humerus. HISTORY: fall COMPARISON: None. FINDINGS: BONES: Normal. No fracture or focal lesion. SOFT TISSUES: Normal. OTHER FINDINGS: None. IMPRESSION: Normal radiographs of left humerus.
--- NOTE | 2017-12-29 12:23 | RAD ---
PROCEDURE: Radiographs of the Left Shoulder HISTORY: fall COMPARISON: No prior. FINDINGS: BONES: There is a displaced fracture of the distal clavicle JOINTS: Normal. Glenohumeral and acromioclavicular joints preserved. No osteoarthritis. SOFT TISSUES: Normal. OTHER FINDINGS: None. IMPRESSION: Displaced fracture of the distal clavicle.
[2017-12-29 12:44] VITALS: BP 133/88; PULSE 95; O2SAT 95
== END 2017-12-29 12:45 | disposition home or self-care (01) ==
LOC: ED 08:47
DX: S42.032A Displaced fracture of lateral end of left clavicle, initial encounter for closed fracture (principal); W01.0XXA Fall on same level from slipping, tripping and stumbling without subsequent striking against object, initial encounter; Z91.81 History of falling; Y92.009 Unspecified place in unspecified non-institutional (private) residence as the place of occurrence of the external cause
CPT/HCPCS: 29240; 70450; 72125; 73030; 73060; 96372; 99283; J2270